=== PATIENT | female | born 1990 | race Caucasian/White ===

== ENCOUNTER 2016-12-06 16:53 | Inpatient (IN) | payer BC ==
[2016-12-06] MEDS ORDERED: Carboprost Tromethamine 250 MCG/1 ML Amp IM PRN (17:23)
[2016-12-06] MEDS ORDERED: Butorphanol 1 MG/ML SDV IVPUSH PRN (17:23)
[2016-12-06] MEDS ORDERED: Methylergonovine 0.2 MG/1 ML Amp IM PRN (17:23)
[2016-12-06] MEDS ORDERED: Misoprostol 200 MCG Tab PO PRN (17:23)
[2016-12-06] MEDS ORDERED: Lidocaine 1% 50 ML MDV INJECT PRN (17:23)
[2016-12-06] MEDS ORDERED: Sodium Chloride 0.9% 10 ML Syringe FLUSH PRN (17:23)
[2016-12-06] MEDS ORDERED: Water For Irrigation,Sterile 1,000 ML Container IRR PRN (17:23)
[2016-12-06] MEDS ORDERED: Sodium Chloride 0.9% 2.5 ML Syringe FLUSH PRN (17:23)
[2016-12-06] MEDS ORDERED: Misoprostol 25 MCG (1/4 of 100 MCG) Tab VAG SCH (18:15)
[2016-12-06] MEDS ORDERED: Oxytocin/Lactated Ringers 30 UNIT/500 ML BAG IV SCH (19:30)
--- NOTE | 2016-12-06 20:13 | PCM.PREANE ---
Preanesthetic Assessment - Anesthesia/Transfusion/Family Hx Anesthesia History: Prior Anesthesia Without Reaction Family History of Anesthesia Reaction: No Transfusion History: No Prior Transfusion(s) - Review of Systems Other: Reports: None - Physical Assessment Height: 5 ft 6 in Weight: 83.461 kg ASA Class: 2 Mental Status: Alert & Oriented x3 Airway Class: Mallampati = 2 Dentition: Reports: Normal Dentition Thyro-Mental Finger Breadths: 3 Mouth Opening Finger Breadths: 3 ROM/Head Extension: Full - Lab Values: Laboratory Last Values WBC 16.63 K/uL (4.0-11.0) H 12/06/16 17:50 RBC 4.17 M/uL (4.30-5.90) L 12/06/16 17:50 Hgb 11.1 g/dL (12.0-16.0) L 12/06/16 17:50 Hct 34.7 % (36.0-46.0) L 12/06/16 17:50 MCV 83.2 fL (80.0-98.0) 12/06/16 17:50 MCH 26.6 pg (27.0-32.0) L 12/06/16 17:50 MCHC 32.0 g/dL (31.0-37.0) 12/06/16 17:50 RDW Std Deviation 42.1 fl (28.0-62.0) 12/06/16 17:50 RDW Coeff of Gilbert 14 % (11.0-15.0) 12/06/16 17:50 Plt Count 258 K/uL (150-400) 12/06/16 17:50 MPV 9.10 fL (7.40-12.00) 12/06/16 17:50 Nucleated RBC % 0.0 /100WBC 12/06/16 17:50 Nucleated RBCs # 0 K/uL 12/06/16 17:50 Blood Type O NEGATIVE 12/06/16 17:50 Antibody Screen NEGATIVE 12/06/16 17:50 - Allergies Allergies/Adverse Reactions: Allergies Allergy/AdvReac Type Severity Reaction Status Date / Time erythromycin base Allergy Other Verified 12/06/16 17:23 - Blood Blood Available: Yes Product(s) Available: PRBC - Acknowledgements Anesthesia Type Planned: Epidural Pt an Appropriate Candidate for the Planned Anesthesia: Yes Alternatives and Risks of Anesthesia Discussed w Pt/Guardian: Yes Pt/Guardian Understands and Agrees with Anesthesia Plan: Yes PreAnesthesia Questionnaire Cardiovascular History: Reports: Other (see below) Other Cardiovascular History: Pt has childhood history of "prechordial skip" that was outgrown 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: - Infectious Disease History Infectious Disease History: Reports: Chicken pox - Past Surgical History HEENT Surgical History: Reports: Tonsillectomy Cardiovascular Surgical History: Reports: None - SUBSTANCE USE Smoking Status *Q: Never Smoker Second Hand Smoke Exposure: No Days Per Week of Alcohol Use: 2 Number of Drinks Per Day: 4 Total Drinks Per Week: 8 Date of Last Drink: 03/25/16 Time of Last Drink: 20:00 Recreational Drug Use History: No - CURRENT (IN HOUSE) MEDS Current Meds: Current Medications Butorphanol Tartrate (Stadol) 1 mg IVPUSH Q1H PRN PRN Reason: Pain Last Admin: 12/06/16 19:55 Dose: 1 mg Carboprost Tromethamine (Hemabate Ds) 250 mcg IM ASDIRECTED PRN PRN Reason: Post Hemorrhage Lactated Ringer's (Ringers, Lactated) 1,000 mls @ 150 mls/hr IV ASDIRECTED STEFFANIE Oxytocin/Lactated Ringer's (Pitocin In Lr 30 Units/500 Ml) 30 unit in 500 mls @ 2 mls/hr IV TITRATE STEFFANIE; 2 MUNITS/MIN PRN Reason: Protocol Lidocaine HCl (Xylocaine 1%) 50 ml INJECT .ONCE PRN PRN Reason: Laceration repair Methylergonovine Maleate (Methergine) 0.2 mg IM ASDIRECTED PRN PRN Reason: Post Hemorrhage Misoprostol (Cytotec) 200 mcg PO .ONCE PRN PRN Reason: Post Hemorrhage Misoprostol (Cytotec) 25 mcg VAG .ONCE STEFFANIE Last Admin: 12/06/16 18:41 Dose: 25 mcg Misoprostol (Cytotec) 25 mcg VAG Q4H PRN PRN Reason: Cervical Ripening Stop: 12/08/16 02:16 Sodium Chloride (Saline Flush) 10 ml FLUSH ASDIRECTED PRN PRN Reason: Keep Vein Open Sodium Chloride (Saline Flush) 2.5 ml FLUSH ASDIRECTED PRN PRN Reason: Keep Vein Open Sterile Water (Sterile Water For Irrigation) 1,000 ml IRR ASDIRECTED PRN PRN Reason: delivery Terbutaline Sulfate (Brethine) 0.25 mg SUBCUT ASDIRECTED PRN PRN Reason: Tacysystole Discontinued Medications Oxytocin/Lactated Ringer's (Pitocin In Lr 30 Units/500 Ml) 30 unit in 500 mls @ 999 mls/hr IV TITRATE STEFFANIE PRN Reason: 999 MUNITS/MIN Stop: 12/06/16 20:01
[2016-12-06] MEDS: Lactated Ringers 1,000 ML IV SCH ×3 (20:53→21:56)
[2016-12-06] MEDS: Terbutaline 1 MG/ML SDV SUBCUT PRN ×2 (20:58→22:09)
[2016-12-06] MEDS ORDERED: fentaNYL 100 MCG/2 ML SDV ONE (21:01)
[2016-12-06] MEDS ORDERED: Ropivacaine 0.2% 2 MG/ML 20 ML SDV ONE (21:02)
[2016-12-06] MEDS ORDERED: Ropivacaine HCl/PF 100 ML ONE (21:02)
[2016-12-06] MEDS ORDERED: Misoprostol 25 MCG (1/4 of 100 MCG) Tab VAG PRN (22:15)
[2016-12-06] MEDS ORDERED: Oxytocin/Lactated Ringers 30 UNIT/500 ML BAG ONE (22:48)
[2016-12-07] MEDS: Lactated Ringers 1,000 ML IV SCH (01:08)
[2016-12-07] MEDS ORDERED: Acetaminophen 500 MG Tab ONE (02:23)
[2016-12-07] MEDS ORDERED: Acetaminophen 500 MG Tab PO ONE (02:24)
[2016-12-07] MEDS ORDERED: oxyCODONE 5 MG Tab PO PRN (04:10)
[2016-12-07] MEDS ORDERED: Benzocaine/Menthol 20%-0.5% Spray 78 GM Cannister TOP PRN (04:10)
[2016-12-07] MEDS ORDERED: Lanolin 100% Cream 7 GM Tube TOP PRN (04:10)
[2016-12-07] MEDS ORDERED: Ibuprofen 400 MG Tab PO PRN (04:10)
[2016-12-07] MEDS ORDERED: Bisacodyl 10 MG Supp RECTAL PRN (04:10)
[2016-12-07] MEDS ORDERED: Acetaminophen 500 MG Tab PO PRN ×2 (04:10)
[2016-12-07] MEDS ORDERED: Witch Hazel Medicated Pads 40/Jar TOP PRN (04:10)
--- NOTE | 2016-12-07 06:00 | PCM48HPAN ---
Post Anesthesia Note - EVALUATION WITHIN 48HRS OF ANESTHETIC Vital Signs in Normal Range: Yes Patient Participated in Evaluation: Yes Respiratory Function Stable: Yes Airway Patent: Yes Cardiovascular Function Stable: Yes Hydration Status Stable: Yes Pain Control Satisfactory: Yes Nausea and Vomiting Control Satisfactory: Yes Mental Status Recovered: Yes
[2016-12-07] MEDS ORDERED: Oxytocin/Lactated Ringers 30 UNIT/500 ML BAG IV SCH (07:00)
--- NOTE | 2016-12-07 07:47 | OR ---
SURGEON: Evangelina Red MD DATE OF PROCEDURE: 12/07/2016 PREOPERATIVE DIAGNOSES: 1. Term at 40 weeks and 5 days gestation. 2. Induction of labor for post dates with polyhydramnios. POSTOPERATIVE DIAGNOSES: 1. Term at 40 weeks and 5 days gestation. 2. Induction of labor for post dates with polyhydramnios. 3. Delivered. PROCEDURES: 1. Spontaneous vaginal delivery. 2. Repair of second-degree perineal laceration. ANESTHESIA: Epidural. ESTIMATED BLOOD LOSS: Less than 250 mL. COMPLICATIONS: None. DISPOSITION: Mother and baby in Labor and Delivery room, [facility]. FINDINGS: Female infant, weight 3390 grams. score 7 and 9 at 1 and 5 minutes respectively. Grossly normal placenta with three-vessel cord. Midline second- degree laceration. BRIEF HISTORY: The patient is a 26-year-old primigravida, who was admitted overnight at 40 weeks and 4 days gestation for induction of labor secondary to postdates with polyhydramnios. GBS negative. She received a dose of Cytotec 25 mcg vaginal at about 1830 hours on the 06 of December and, an hour later, started bharat every 2 to 3 minutes, spontaneous rupture of membranes occurred approximately 2 hours later, with clear fluid. Thereafter, a category 2 strip was noted due to tachysystole causing recurrent variable decelerations with one episode of prolonged deceleration down to 70 beats per minute for over 3mins. I evaluated her and she was 5cm dilated, 100% effaced, at station 2 with clear amniotic fluid draining. I placed an IUPC and a scalp electrode. Started IV fluids, facial oxygen with also maternal position changes,she also received a dose of terbutaline. With these measures, the contractions spaced out and the strip reverted to a category 1 strip. She then requested and received an epidural. Shortly after the epidural, she was re- examined and found to be 8 cm dilated. Thereafter, she progressed to fully dilated at about 12 midnight. She was allowed to labor down for an hour and then commenced active pushing. With active pushing, the contractions spaced out, and she received low-dose oxytocin for augmentation. She pushed quite well bringing the baby's head down to a +4 station and was set up for delivery in modified dorsal lithotomy position. DESCRIPTION OF PROCEDURE: She had a spontaneous vaginal delivery of a live female in direct occipital anterior position, no nuchal cord, clear amniotic fluid at delivery. Anterior and posterior shoulders and the rest of the baby were delivered without difficulty. The baby was vigorous and cried spontaneously at . The baby was delivered onto the maternal abdomen. The cord was double clamped after it had ceased pulsating and was cut by the father of the baby. With the delivery of the , oxytocin infusion was converted to a titration for active management of third stage of labor. Cord blood and gas samples were obtained. Placenta was then delivered via controlled cord traction, appeared to be complete and intact. Examination of the perineum revealed a midline second- degree laceration. The laceration was repaired in 3 layers using a 2-0 Vicryl suture. Continuous nonlocking sutures were used to reapproximate the vaginal mucosa and interrupted sutures were used to repair the perineal muscle. Subcuticular stitches were used to approximate the skin. The repair was hemostatic. Uterine massage was performed. The uterus was found to be well contracted below the umbilicus. The patient tolerated the procedure well. Sponge, instrument, and needle counts were correct at the end of the delivery. ADUMVIV / KARRIL /[id number] MARGY
[2016-12-07] MEDS: Docusate Sodium 100 MG Cap PO PRN (08:41)
[2016-12-07] MEDS: Ibuprofen 800 MG Tab PO PRN (21:16)
[2016-12-08] MEDS: Docusate Sodium 100 MG Cap PO PRN (08:15)
[2016-12-08] MEDS: Ibuprofen 800 MG Tab PO PRN (08:15)
[2016-12-08 08:28] VITALS: BP 106/67
--- NOTE | 2016-12-08 08:50 | PCM.PNPP ---
- General Info Date of Service: 12/08/16 Functional Status: Reports: pain controlled, tolerating diet, ambulating, urinating - Review of Systems General: Denies: Fever, Weakness Pulmonary: Denies: shortness of breath Cardiovascular: Denies: Chest Pain, Palpitations, Lightheadedness Gastrointestinal: Denies: Abdominal pain, Nausea, Vomiting Genitourinary: Denies: flank pain Neurological: Reports: No Symptoms Psychiatric: Reports: no symptoms - General Info Date of Service: 12/08/16 - Patient Data Vital Signs - most recent: Last Vital Signs Temp 36.7 C 12/08/16 08:27 Pulse 80 12/08/16 08:27 Resp 17 12/08/16 08:27 BP 106/67 12/08/16 08:27 Pulse Ox 98 12/08/16 08:27 Weight - most recent: 83.461 kg I&O - last 24 hours: Intake & Output 12/07/16 12/08/16 12/08/16 22:59 06:59 14:59 Intake Total 2 Balance 2 Lab Results - last 24 hrs: Laboratory Results - last 24 hr 12/07/16 12/08/16 Range/Units 04:45 06:00 Hgb 10.0 L (12.0-16.0) g/dL Hct 31.7 L (36.0-46.0) % Screen NEGATIVE RhIG Candidate? YES Rhogam Indicated YES, BABY RH POS H Med Orders - Current: Current Medications Acetaminophen (Tylenol Extra Strength) 500 mg PO Q4H PRN PRN Reason: Pain Acetaminophen (Tylenol Extra Strength) 1,000 mg PO Q4H PRN PRN Reason: Pain Benzocaine/Menthol (Dermoplast Pain Relief 20%-0.5% [place]) 78 gm TOP ASDIRECTED PRN PRN Reason: Perineal Comfort Measure Last Admin: 12/07/16 08:42 Dose: 1 spray Bisacodyl (Dulcolax) 10 mg RECTAL .ONCE PRN PRN Reason: Constipation Docusate Sodium (Colace) 100 mg PO BID PRN PRN Reason: Constipation Last Admin: 12/08/16 08:15 Dose: 100 mg Emollient Ointment (Lansinoh Hpa) 0 gm TOP ASDIRECTED PRN PRN Reason: Sore Nipples Ibuprofen (Motrin) 400 mg PO Q4H PRN PRN Reason: Pain Ibuprofen (Motrin) 800 mg PO Q6H PRN PRN Reason: Pain Last Admin: 12/08/16 08:15 Dose: 800 mg Oxycodone HCl (Oxycodone) 5 mg PO Q2H PRN PRN Reason: Pain Witch Miriam (Tucks) 1 pad TOP ASDIRECTED PRN PRN Reason: comfort care Last Admin: 12/07/16 08:41 Dose: 1 pad Discontinued Medications Acetaminophen (Tylenol Extra Strength) 1,000 mg PO ONETIME ONE Stop: 12/07/16 02:25 Last Admin: 12/07/16 02:27 Dose: 1,000 mg Acetaminophen (Tylenol Extra Strength) Confirm Administered Dose 1,000 mg .ROUTE .STK-MED ONE Stop: 12/07/16 02:24 Last Admin: 12/07/16 09:22 Dose: Not Given Butorphanol Tartrate (Stadol) 1 mg IVPUSH Q1H PRN PRN Reason: Pain Last Admin: 12/06/16 19:55 Dose: 1 mg Carboprost Tromethamine (Hemabate Ds) 250 mcg IM ASDIRECTED PRN PRN Reason: Post Hemorrhage Fentanyl (Sublimaze) Confirm Administered Dose 200 mcg .ROUTE .STK-MED ONE Stop: 12/06/16 21:02 Last Admin: 12/07/16 09:21 Dose: Not Given Lactated Ringer's (Ringers, Lactated) 1,000 mls @ 150 mls/hr IV ASDIRECTED STEFFANIE Last Admin: 12/07/16 01:08 Dose: 150 mls/hr Oxytocin/Lactated Ringer's (Pitocin In Lr 30 Units/500 Ml) 30 unit in 500 mls @ 999 mls/hr IV TITRATE STEFFANIE PRN Reason: 999 MUNITS/MIN Stop: 12/06/16 20:01 Last Infusion: 12/07/16 03:35 Dose: 500 munits/min, 500 mls/hr Oxytocin/Lactated Ringer's (Pitocin In Lr 30 Units/500 Ml) 30 unit in 500 mls @ 2 mls/hr IV TITRATE STEFFANIE; 2 MUNITS/MIN PRN Reason: Protocol Ropivacaine (Naropin 0.2%) Confirm Administered Dose 100 mls @ as directed .ROUTE .STK-MED ONE Stop: 12/06/16 21:03 Last Admin: 12/07/16 09:22 Dose: Not Given Oxytocin/Lactated Ringer's (Pitocin In Lr 30 Units/500 Ml) Confirm Administered Dose 30 unit in 500 mls @ as directed .ROUTE .[facility]-MED ONE Stop: 12/06/16 22:49 Last Admin: 12/07/16 09:22 Dose: Not Given Lidocaine HCl (Xylocaine 1%) 50 ml INJECT .ONCE PRN PRN Reason: Laceration repair Methylergonovine Maleate (Methergine) 0.2 mg IM ASDIRECTED PRN PRN Reason: Post Hemorrhage Misoprostol (Cytotec) 200 mcg PO .ONCE PRN PRN Reason: Post Hemorrhage Misoprostol (Cytotec) 25 mcg VAG .ONCE STEFFANIE Last Admin: 12/06/16 18:41 Dose: 25 mcg Misoprostol (Cytotec) 25 mcg VAG Q4H PRN PRN Reason: Cervical Ripening Stop: 12/08/16 02:16 Ropivacaine (Naropin 0.2%) Confirm Administered Dose 20 ml .ROUTE .[facility]-MED ONE Stop: 12/06/16 21:03 Last Admin: 12/07/16 09:21 Dose: Not Given Sodium Chloride (Saline Flush) 10 ml FLUSH ASDIRECTED PRN PRN Reason: Keep Vein Open Sodium Chloride (Saline Flush) 2.5 ml FLUSH ASDIRECTED PRN PRN Reason: Keep Vein Open Sterile Water (Sterile Water For Irrigation) 1,000 ml IRR ASDIRECTED PRN PRN Reason: delivery Last Admin: 12/07/16 03:30 Dose: 1,000 ml Terbutaline Sulfate (Brethine) 0.25 mg SUBCUT ASDIRECTED PRN PRN Reason: Tacysystole Last Admin: 12/06/16 22:09 Dose: 0.25 mg - Interaction Disposition, : in Room with Family Infant Interaction: Holding Infant Feeding: Breastfed ; Nursed Well Support Person: , Mother - Recovery Exam Fundal Tone: Firm Fundal Level: At Umbilicus Fundal Placement: Midline Lochia Amount: Scant Lochia Color: Rubra/Red Perineum Description: Other (see below) Other Perinuem Description: 2nd degree lac with right labial bruising Episiotomy/Laceration: Approximated Bladder Status: Voiding Urinary Elimination: Voided - Exam General: alert, oriented Lungs: Normal respiratory effort Cardiovascular: Regular Rate, Regular Rhythm Abdomen: bowel sounds present, soft. No: CVA tenderness Extremities: no calf tenderness Skin: warm, dry, intact Psy/Mental Status: alert, normal affect - Problem List & Annotations (1) Vaginal delivery SNOMED Code(s): 400601561 Code(s): O80 - ENCOUNTER FOR FULL-TERM UNCOMPLICATED DELIVERY Status: Acute Current Visit: Yes - Problem List Review Problem List Initiated/Reviewed/Updated: Yes - Assessment Assessment:: PPD 1 status post /2nd MLL repaired - Plan Plan:: Patient is doing well overall, would like to go home today. Discharge instructions reviewed. Infection and bleeding warnings reviewed. [facility] up at [facility] 6 weeks. Discharge to home.
== END 2016-12-08 10:23 | disposition home or self-care (01) | DRG 560 ==
LOC: MW.OBCHECK 16:53 → MW.OB 16:54 → MW.OBCHECK 17:24 → OBSVTOIN 12-07 03:34 → MW.OB 12-07 10:45
PROVIDERS: ADMIT Obstetrics & Gynecology; ATTEND Obstetrics & Gynecology
PROC: 10E0XZZ Delivery of Products of Conception, External Approach (ICD-10-PCS; principal; 2016-12-07)
PROC: 3E0P7GC Introduction of Other Therapeutic Substance into Female Reproductive, Via Natural or Artificial Opening (ICD-10-PCS; 2016-12-07)
PROC: 00HU33Z Insertion of Infusion Device into Spinal Canal, Percutaneous Approach (ICD-10-PCS; 2016-12-07)
PROC: 3E0R3CZ (ICD-10-PCS; 2016-12-07)
PROC: 0KQM0ZZ Repair Perineum Muscle, Open Approach (ICD-10-PCS; 2016-12-07)
DX: O48.0 Post-term pregnancy (principal); O40.3XX0 Polyhydramnios, third trimester, not applicable or unspecified; O70.1 Second degree perineal laceration during delivery; Z3A.40 40 weeks gestation of pregnancy; Z37.1 Single stillbirth
CPT/HCPCS: 01967; 36415; 51703; 59025; 85014; 85018; 85027; 85460; 86850; 86900; 86901; A9270-GY; J0595; J2790; J2795; J3010; J3105; J7120

== ENCOUNTER 2020-09-29 05:00 | Inpatient (IN) | payer OTHER ==
[2020-09-29] MEDS: Lactated Ringers 1,000 ML IV SCH ×2 (05:40→11:11)
[2020-09-29] MEDS ORDERED: Sodium Chloride 0.9% 2.5 ML Syringe FLUSH PRN ×2 (06:00→12:57)
[2020-09-29] MEDS ORDERED: Misoprostol 25 MCG (1/4 of 100 MCG) Tab VAG PRN ×2 (06:00)
[2020-09-29] MEDS ORDERED: Sodium Chloride 0.9% 10 ML Syringe FLUSH PRN ×2 (06:00→12:57)
[2020-09-29] MEDS ORDERED: Lidocaine 1% 50 ML MDV INJECT PRN (06:00)
[2020-09-29] MEDS ORDERED: Terbutaline 1 MG/ML SDV SUBCUT PRN (06:00)
[2020-09-29] MEDS ORDERED: Oxytocin/0.9 % Sodium Chloride 30 UNIT/500 ML BAG IV SCH ×2 (06:00)
[2020-09-29] MEDS ORDERED: Sodium Chloride 0.9% 10 ML SDV IV PRN ×2 (06:00→12:57)
[2020-09-29] MEDS ORDERED: Butorphanol 1 MG/ML SDV IVPUSH PRN (06:00)
[2020-09-29] MEDS ORDERED: Nalbuphine 10 MG/1 ML Vial IVPUSH PRN (06:00)
[2020-09-29] MEDS ORDERED: Methylergonovine 0.2 MG/1 ML Amp IM PRN ×2 (06:00→14:41)
[2020-09-29] MEDS ORDERED: Ondansetron 4 MG/2 ML SDV IVPUSH PRN ×2 (06:00→14:41)
[2020-09-29] MEDS ORDERED: Misoprostol 200 MCG Tab PO PRN (06:00)
[2020-09-29] MEDS ORDERED: Water For Irrigation,Sterile 1,000 ML Container IRR PRN (06:00)
[2020-09-29] MEDS ORDERED: Tranexamic Acid 1,000 MG in Sodium Chloride 0.9% 100 ML IV PRN ×2 (06:00→14:41)
[2020-09-29] MEDS ORDERED: Carboprost Tromethamine 250 MCG/1 ML Amp IM PRN (06:00)
[2020-09-29] MEDS ORDERED: Citric Acid/Sodium Citrate Solution 30 ML Cup PO ONE (12:57)
[2020-09-29] MEDS ORDERED: Lactated Ringers 1,000 ML IV SCH ×2 (13:00→14:45)
[2020-09-29] MEDS ORDERED: fentaNYL 100 MCG/2 ML SDV IVPUSH PRN (13:14)
[2020-09-29] MEDS ORDERED: Acetaminophen/oxyCODONE 325-5 MG Tab PO PRN ×2 (13:14→14:41)
--- NOTE | 2020-09-29 13:14 | PCM.PREANE ---
Preanesthetic Assessment - Anesthesia/Transfusion/Family Hx Anesthesia History: Prior Anesthesia Without Reaction Family History of Anesthesia Reaction: No Transfusion History: No Prior Transfusion(s) - Review of Systems General: No Symptoms Pulmonary: No Symptoms Cardiovascular: No Symptoms Gastrointestinal: No Symptoms Neurological: No Symptoms Other: Reports: None - Physical Assessment NPO Status Date: 09/29/20 NPO Status Time: 11:30 Height: 5 ft 6 in Weight: 87.09 kg ASA Class: 2 Mental Status: Alert & Oriented x3 Airway Class: Mallampati = 2 Dentition: Reports: Normal Dentition ROM/Head Extension: Full Lungs: Clear to Auscultation, Normal Respiratory Effort Cardiovascular: Regular Rate, Regular Rhythm - Lab Values: Laboratory Last Values WBC 8.72 K/uL (4.0-11.0) 09/29/20 05:51 RBC 4.02 M/uL (4.30-5.90) L 09/29/20 05:51 Hgb 11.5 g/dL (12.0-16.0) L 09/29/20 05:51 Hct 36.1 % (36.0-46.0) 09/29/20 05:51 MCV 89.8 fL (80.0-98.0) 09/29/20 05:51 MCH 28.6 pg (27.0-32.0) 09/29/20 05:51 MCHC 31.9 g/dL (31.0-37.0) 09/29/20 05:51 RDW Std Deviation 44.0 fl (28.0-62.0) 09/29/20 05:51 RDW Coeff of Gilbert 13 % (11.0-15.0) 09/29/20 05:51 Plt Count 231 K/uL (150-400) 09/29/20 05:51 MPV 10.20 fL (7.40-12.00) 09/29/20 05:51 Nucleated RBC % 0.0 /100WBC 09/29/20 05:51 Nucleated RBCs # 0 K/uL 09/29/20 05:51 Blood Type O NEGATIVE 09/29/20 05:51 Antibody Screen NEGATIVE 09/29/20 05:51 - Allergies Allergies/Adverse Reactions: Allergies Allergy/AdvReac Type Severity Reaction Status Date / Time erythromycin base Allergy Other Verified 12/06/16 17:23 - Blood Blood Available: No - Anesthesia Plan Pre-Op Medication Ordered: None - Acknowledgements Anesthesia Type Planned: Spinal Pt an Appropriate Candidate for the Planned Anesthesia: Yes Alternatives and Risks of Anesthesia Discussed w Pt/Guardian: Yes Pt/Guardian Understands and Agrees with Anesthesia Plan: Yes Additional Comments: , 39 wk, breech, no maternal or distress, mom with full stomach PLAN: spinal with it duramorph PreAnesthesia Questionnaire - Past Health History Medical/Surgical History: Denies Medical/Surgical History Cardiovascular History: Reports: Other (See Below) Other Cardiovascular History: Pt has childhood history of "prechordial skip" that was outgrown 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 Disease History Infectious Disease History: Reports: Chicken Pox - Past Surgical History HEENT Surgical History: Reports: Tonsillectomy Cardiovascular Surgical History: Reports: None - SUBSTANCE USE Tobacco Use Status *Q: Never Tobacco User Tobacco Use Within Last Twelve Months: No Second Hand Smoke Exposure: No Recreational Drug Use History: No - CURRENT (IN HOUSE) MEDS Current Meds: Current Medications Butorphanol Tartrate (Stadol) 1 mg IVPUSH Q1H PRN PRN Reason: Pain Carboprost Tromethamine (Hemabate Ds) 250 mcg IM ASDIRECTED PRN PRN Reason: Post Hemorrhage Oxytocin/Sodium Chloride (Oxytocin 30 Unit/500 Ml-Ns) 30 unit in 500 mls @ 500 mls/hr IV TITRATE STEFFANIE Tranexamic Acid 1,000 mg/ (Sodium Chloride) 110 mls @ 660 mls/hr IV ONETIME PRN PRN Reason: Bleeding Oxytocin/Sodium Chloride (Oxytocin 30 Unit/500 Ml-Ns) 30 unit in 500 mls @ 2 mls/hr IV TITRATE STEFFANIE; Protocol Lactated Ringer's (Ringers, Lactated) 1,000 mls @ 150 mls/hr IV ASDIRECTED STEFFANIE Last Admin: 09/29/20 11:11 Dose: 150 mls/hr Documented by: Lactated Ringer's (Ringers, Lactated) 1,000 mls @ 500 mls/hr IV BOLUS STEFFANIE Lidocaine HCl (Xylocaine 1%) 50 ml INJECT ONETIME PRN PRN Reason: Laceration repair Methylergonovine Maleate (Methergine) 0.2 mg IM ASDIRECTED PRN PRN Reason: Post Hemorrhage Misoprostol (Cytotec) 200 mcg PO ONETIME PRN PRN Reason: Post Hemorrhage Misoprostol (Cytotec) 25 mcg VAG ONETIME PRN PRN Reason: Cervical Ripening Last Admin: 09/29/20 07:12 Dose: 25 mcg Documented by: Misoprostol (Cytotec) 25 mcg VAG Q4H PRN PRN Reason: Cervical Ripening Last Admin: 09/29/20 11:15 Dose: 25 mcg Documented by: Nalbuphine HCl (Nubain) 10 mg IVPUSH Q1H PRN PRN Reason: Pain (severe 7-10) Ondansetron HCl (Zofran) 4 mg IVPUSH Q6H PRN PRN Reason: Nausea/Vomiting Sodium Chloride (Saline Flush) 10 ml FLUSH ASDIRECTED PRN PRN Reason: Keep Vein Open Sodium Chloride (Saline Flush) 2.5 ml FLUSH ASDIRECTED PRN PRN Reason: Keep Vein Open Sodium Chloride (Normal Saline) 10 ml IV ASDIRECTED PRN PRN Reason: IV Use Sodium Chloride (Saline Flush) 10 ml FLUSH ASDIRECTED PRN PRN Reason: Keep Vein Open Sodium Chloride (Saline Flush) 2.5 ml FLUSH ASDIRECTED PRN PRN Reason: Keep Vein Open Sodium Chloride (Normal Saline) 10 ml IV ASDIRECTED PRN PRN Reason: IV Use Sterile Water (Sterile Water For Irrigation) 1,000 ml IRR ASDIRECTED PRN PRN Reason: delivery Terbutaline Sulfate (Brethine) 0.25 mg SUBCUT ASDIRECTED PRN PRN Reason: Tacysystole Discontinued Medications Citric Acid/Sodium Citrate (Bicitra Solution) 30 ml PO ONETIME ONE Stop: 09/29/20 12:58 Cefazolin Sodium/Dextrose (Ancef 2 Gm/50 Ml) Confirm Administered Dose 50 mls @ as directed .ROUTE .STK-MED ONE Stop: 09/29/20 13:07
[2020-09-29] MEDS ORDERED: Misoprostol 200 MCG Tab RECTAL PRN (14:41)
[2020-09-29] MEDS ORDERED: Oxytocin 10 Units/1 ML SDV IM PRN (14:41)
[2020-09-29] MEDS ORDERED: Bisacodyl 10 MG Supp RECTAL PRN (14:41)
[2020-09-29] MEDS ORDERED: diphenhydrAMINE 50 MG/ML SDV IVPUSH PRN (14:41)
[2020-09-29] MEDS ORDERED: Lanolin 100% Cream 7 GM Tube TOP PRN (14:41)
[2020-09-29] MEDS: Ketorolac 30 MG/ML SDV IVPUSH SCH ×2 (15:00→21:19)
[2020-09-29] MEDS: Nalbuphine 10 MG/1 ML Vial IVPUSH PRN ×2 (15:03→18:08)
[2020-09-29] MEDS: Docusate Sodium 100 MG Cap PO SCH (21:19)
[2020-09-30] MEDS: Ketorolac 30 MG/ML SDV IVPUSH SCH ×3 (04:35→15:04)
--- NOTE | 2020-09-30 07:54 | PCM48HPAN ---
Post Anesthesia Note - EVALUATION WITHIN 48HRS OF ANESTHETIC Vital Signs in Normal Range: Yes Patient Participated in Evaluation: Yes Respiratory Function Stable: Yes Airway Patent: Yes Cardiovascular Function Stable: Yes Hydration Status Stable: Yes Pain Control Satisfactory: Yes (Some itching.) Nausea and Vomiting Control Satisfactory: Yes Mental Status Recovered: Yes Vital Signs: Last Vital Signs Temp 36.5 C 09/30/20 04:50 Pulse 69 09/30/20 07:00 Resp 20 09/30/20 07:00 BP 90/54 L 09/30/20 04:50 Pulse Ox 97 09/30/20 07:00 - COMMENTS/OBSERVATIONS Free Text/Narrative:: Doing well. No post problems noted.
--- NOTE | 2020-09-30 07:56 | PCM.POSTAN ---
POST ANESTHESIA ASSESSMENT - MENTAL STATUS Mental Status: Alert - VITAL SIGNS Vital Signs: Last Vital Signs Temp 36.5 C 09/30/20 04:50 Pulse 69 09/30/20 07:00 Resp 20 09/30/20 07:00 BP 90/54 L 09/30/20 04:50 Pulse Ox 97 09/30/20 07:00 - RESPIRATORY Respiratory Status: Respiratory Rate WNL - CARDIOVASCULAR CV Status: Pulse Rate WNL - GASTROINTESTINAL GI Status: No Symptoms - PAIN Pain Score: 0 (Block regressing.) - POST OP HYDRATION Hydration Status: Adequate & Stable - OBSERVATIONS Free Text/Narrative:: Doing well.
--- NOTE | 2020-09-30 09:01 | PCM.PNPP ---
- General Info Date of Service: 09/30/20 Functional Status: Reports: Pain Controlled, Tolerating Diet, Ambulating, Urinating, Other (passing flatus, no BMs) - Review of Systems General: Reports: No Symptoms HEENT: Reports: No Symptoms Pulmonary: Reports: No Symptoms Cardiovascular: Reports: No Symptoms Gastrointestinal: Reports: No Symptoms Genitourinary: Reports: No Symptoms Musculoskeletal: Reports: No Symptoms Skin: Reports: No Symptoms Neurological: Reports: No Symptoms Psychiatric: Reports: No Symptoms - Patient Data Vital Signs - Most Recent: Last Vital Signs Temp 36.8 C 09/30/20 08:00 Pulse 76 09/30/20 08:00 Resp 16 09/30/20 08:00 BP 95/58 L 09/30/20 08:00 Pulse Ox 94 L 09/30/20 08:00 Weight - Most Recent: 192 lb I&O - Last 24 Hours: Intake & Output 09/29/20 09/30/20 09/30/20 22:59 06:59 14:59 Intake Total 400 Output Total 250 600 Balance -250 -200 Lab Results - Last 24 Hours: Laboratory Results - last 24 hr 09/29/20 09/29/20 09/29/20 Range/Units 05:57 13:47 15:12 WBC 8.62 (4.0-11.0) K/uL RBC 3.99 L (4.30-5.90) M/uL Hgb 11.7 L (12.0-16.0) g/dL Hct 35.5 L (36.0-46.0) % MCV 89.0 (80.0-98.0) fL MCH 29.3 (27.0-32.0) pg MCHC 33.0 (31.0-37.0) g/dL RDW Std Deviation 43.0 (28.0-62.0) fl RDW Coeff of Gilbert 13 (11.0-15.0) % Plt Count 237 (150-400) K/uL MPV 10.70 (7.40-12.00) fL Nucleated RBC % 0.0 /100WBC Nucleated RBCs # 0 K/uL Cord ABG pH 7.269 (7.18-7.38) Cord ABG Base Excess -3 (-10--2) Cord VBG pH 7.336 (7.25-7.45) Cord VBG Base Excess -3 (-10--2) Screen NEGATIVE (NEGATIVE) RhIG Candidate? YES Rhogam Indicated YES, BABY RH POS H 09/30/20 Range/Units 04:55 WBC (4.0-11.0) K/uL RBC (4.30-5.90) M/uL Hgb 9.8 L (12.0-16.0) g/dL Hct 30.4 L (36.0-46.0) % MCV (80.0-98.0) fL MCH (27.0-32.0) pg MCHC (31.0-37.0) g/dL RDW Std Deviation (28.0-62.0) fl RDW Coeff of Gilbert (11.0-15.0) % Plt Count (150-400) K/uL MPV (7.40-12.00) fL Nucleated RBC % /100WBC Nucleated RBCs # K/uL Cord ABG pH (7.18-7.38) Cord ABG Base Excess (-10--2) Cord VBG pH (7.25-7.45) Cord VBG Base Excess (-10--2) Screen (NEGATIVE) RhIG Candidate? Rhogam Indicated Med Orders - Current: Current Medications Bisacodyl (Dulcolax) 10 mg RECTAL ONETIME PRN PRN Reason: Constipation Diphenhydramine HCl (Benadryl) 25 mg IVPUSH Q6H PRN PRN Reason: Itching or Nausea Last Admin: 09/29/20 16:26 Dose: 25 mg Documented by: Docusate Sodium (Colace) 100 mg PO BID [facility] Last Admin: 09/29/20 21:19 Dose: 100 mg Documented by: Emollient Ointment (Lansinoh Hpa) 0 gm TOP ASDIRECTED PRN PRN Reason: Sore Nipples Fentanyl (Sublimaze) 50 mcg IVPUSH Q5M PRN PRN Reason: Pain (severe 7-10) Stop: 09/30/20 13:14 Lactated Ringer's (Ringers, Lactated) 1,000 mls @ 500 mls/hr IV BOLUS [facility] Last Admin: 09/29/20 13:14 Dose: 500 mls/hr Documented by: Lactated Ringer's (Ringers, Lactated) 1,000 mls @ 125 mls/hr IV ASDIRECTED [facility] Last Admin: 09/29/20 15:19 Dose: 125 mls/hr Documented by: Tranexamic Acid 1,000 mg/ (Sodium Chloride) 110 mls @ 660 mls/hr IV ONETIME PRN PRN Reason: Bleeding Ibuprofen (Motrin) 800 mg PO Q8H PRN PRN Reason: mild pain or fever Ketorolac Tromethamine (Toradol) 30 mg IVPUSH Q6H [facility] Stop: 09/30/20 14:46 Last Admin: 09/30/20 04:35 Dose: 30 mg Documented by: Methylergonovine Maleate (Methergine) 0.2 mg IM ONETIME PRN PRN Reason: Excessive Vaginal Bleeding Misoprostol (Cytotec) 1,000 mcg RECTAL ONETIME PRN PRN Reason: excessive bleeding Nalbuphine HCl (Nubain) 2.5 mg IVPUSH Q3H PRN PRN Reason: Pruritis Stop: 09/30/20 13:15 Last Admin: 09/29/20 18:08 Dose: 2.5 mg Documented by: Ondansetron HCl (Zofran) 4 mg IVPUSH Q4H PRN PRN Reason: Nausea/Vomiting Oxycodone/Acetaminophen (Percocet 325-5 Mg) 1 tab PO ONETIME PRN PRN Reason: Pain (moderate 4-6) Oxycodone/Acetaminophen (Percocet 325-5 Mg) 1 tab PO Q4H PRN PRN Reason: Pain (moderate 4-6) Oxycodone/Acetaminophen (Percocet 325-5 Mg) 2 tab PO Q4H PRN PRN Reason: Pain (moderate 4-6) Oxytocin (Pitocin) 10 unit IM ASDIRECTED PRN PRN Reason: Excessive Vaginal Bleeding Sodium Chloride (Saline Flush) 10 ml FLUSH ASDIRECTED PRN PRN Reason: Keep Vein Open Sodium Chloride (Saline Flush) 2.5 ml FLUSH ASDIRECTED PRN PRN Reason: Keep Vein Open Sodium Chloride (Normal Saline) 10 ml IV ASDIRECTED PRN PRN Reason: IV Use Sodium Chloride (Saline Flush) 10 ml FLUSH ASDIRECTED PRN PRN Reason: Keep Vein Open Sodium Chloride (Saline Flush) 2.5 ml FLUSH ASDIRECTED PRN PRN Reason: Keep Vein Open Sodium Chloride (Normal Saline) 10 ml IV ASDIRECTED PRN PRN Reason: IV Use Discontinued Medications Butorphanol Tartrate (Stadol) 1 mg IVPUSH Q1H PRN PRN Reason: Pain Carboprost Tromethamine (Hemabate Ds) 250 mcg IM ASDIRECTED PRN PRN Reason: Post Hemorrhage Citric Acid/Sodium Citrate (Bicitra Solution) 30 ml PO ONETIME ONE Stop: 09/29/20 12:58 Oxytocin/Sodium Chloride (Oxytocin 30 Unit/500 Ml-Ns) 30 unit in 500 mls @ 500 mls/hr IV TITRATE [facility] Tranexamic Acid 1,000 mg/ (Sodium Chloride) 110 mls @ 660 mls/hr IV ONETIME PRN PRN Reason: Bleeding Oxytocin/Sodium Chloride (Oxytocin 30 Unit/500 Ml-Ns) 30 unit in 500 mls @ 2 mls/hr IV TITRATE [facility]; Protocol Lactated Ringer's (Ringers, Lactated) 1,000 mls @ 150 mls/hr IV ASDIRECTED [facility] Last Admin: 09/29/20 11:11 Dose: 150 mls/hr Documented by: Cefazolin Sodium/Dextrose (Ancef 2 Gm/50 Ml) Confirm Administered Dose 50 mls @ as directed .ROUTE .STK-MED ONE Stop: 09/29/20 13:07 Acetaminophen (Ofirmev 1000 Mg/100 Ml) Confirm Administered Dose 100 mls @ as directed .ROUTE .STK-MED ONE Stop: 09/29/20 14:34 Lidocaine HCl (Xylocaine 1%) 50 ml INJECT ONETIME PRN PRN Reason: Laceration repair Methylergonovine Maleate (Methergine) 0.2 mg IM ASDIRECTED PRN PRN Reason: Post Hemorrhage Misoprostol (Cytotec) 200 mcg PO ONETIME PRN PRN Reason: Post Hemorrhage Misoprostol (Cytotec) 25 mcg VAG ONETIME PRN PRN Reason: Cervical Ripening Last Admin: 09/29/20 07:12 Dose: 25 mcg Documented by: Misoprostol (Cytotec) 25 mcg VAG Q4H PRN PRN Reason: Cervical Ripening Last Admin: 09/29/20 11:15 Dose: 25 mcg Documented by: Nalbuphine HCl (Nubain) 10 mg IVPUSH Q1H PRN PRN Reason: Pain (severe 7-10) Ondansetron HCl (Zofran) 4 mg IVPUSH Q6H PRN PRN Reason: Nausea/Vomiting Sterile Water (Sterile Water For Irrigation) 1,000 ml IRR ASDIRECTED PRN PRN Reason: delivery Terbutaline Sulfate (Brethine) 0.25 mg SUBCUT ASDIRECTED PRN PRN Reason: Tacysystole - Infant Interaction Disposition, : at Bedside Interaction: Holding Support Person: - Recovery Exam Fundal Tone: Firm Fundal Level: 1 Fingerbreadths Below Umbilicus Fundal Placement: Midline Lochia Amount: Scant Lochia Color: Rubra/Red Perineum Description: Intact, Minimal Bruising/Swelling Episiotomy/Laceration: None Bladder Status: Indwelling Catheter in Place - Exam General: Alert, Oriented, Cooperative, No Acute Distress HEENT: Pupils Equal, Pupils Reactive Neck: Supple, Trachea Midline Lungs: Normal Respiratory Effort GI/Abdominal Exam: Soft, Non-Tender, No Distention Extremities: Normal Inspection, Normal Range of Motion, Non-Tender, No Pedal Edema Skin: Warm, Dry, Intact Wound/Incisions: Dressing Dry and Intact Neurological: No New Focal Deficit Psy/Mental Status: Alert, Normal Affect, Normal Mood - Problem List Review Problem List Initiated/Reviewed/Updated: Yes - My Orders Last 24 Hours: My Active Orders 09/29/20 12:57 Patient Status [ADT] Routine Vital Signs [RC] PER UNIT ROUTINE RPR (SYPHILIS SERO) W/ RFLX [REF] Routine Sodium Chloride 0.9% [Normal Saline] 10 ml IV ASDIRECTED PRN Sodium Chloride 0.9% [Saline Flush] 10 ml FLUSH ASDIRECTED PRN Sodium Chloride 0.9% [Saline Flush] 2.5 ml FLUSH ASDIRECTED PRN Peripheral IV Insertion Adult [OM.PC] Routine Schedule Procedure [COMM] Per Unit Routine 09/29/20 13:00 Lactated Ringers [Ringers, Lactated] 1,000 ml IV BOLUS 09/29/20 14:41 Patient Status [ADT] Routine Ambulate [RC] PER UNIT ROUTINE Communication Order [RC] Per Unit Routine Intake and Output [RC] Q4H May Shower [RC] ASDIRECTED Notify Provider Vital Signs [RC] ASDIRECTED RT Incentive Spirometry [RC] Q2HWA Acetaminophen/oxyCODONE [Percocet 325-5 MG] 1 tab PO Q4H PRN Acetaminophen/oxyCODONE [Percocet 325-5 MG] 2 tab PO Q4H PRN Lanolin [Lansinoh HPA] See Dose Instructions TOP ASDIRECTED PRN Methylergonovine [Methergine] 0.2 mg IM ONETIME PRN Ondansetron [Zofran] 4 mg IVPUSH Q4H PRN Oxytocin [Pitocin] 10 unit IM ASDIRECTED PRN Tranexamic Acid [Cyklokapron] 1,000 mg Sodium Chloride 0.9% [Normal Saline] 100 ml IV ONETIME bisacodyL [Dulcolax] 10 mg RECTAL ONETIME PRN diphenhydrAMINE [Benadryl] 25 mg IVPUSH Q6H PRN miSOPROStoL [Cytotec] 1,000 mcg RECTAL ONETIME PRN Assess Lochia [WOMSER] Per Unit Routine Assess Uterine Involution [WOMSER] Per Unit Routine Breast Pump [WOMSER] Per Unit Routine Peripheral IV Discontinue [OM.PC] Routine Sequential Compression Device [OM.PC] Per Unit Routine 09/29/20 14:42 Antiembolic Devices [RC] PER UNIT ROUTINE Abdominal Binder [OM.PC] Per Unit Routine 09/29/20 14:45 Ketorolac [Toradol] 30 mg IVPUSH Q6H Lactated Ringers [Ringers, Lactated] 1,000 ml IV ASDIRECTED 09/29/20 Dinner Regular Diet [DIET] 09/29/20 21:00 Docusate Sodium [Colace] 100 mg PO BID 09/30/20 20:45 Ibuprofen [Motrin] 800 mg PO Q8H PRN - Assessment Assessment:: 30yo POD1 s/p primary due to breech presentation, stable and recovering well. - Plan Plan:: low baseline BP, with normal HR, denies symptoms ambulating and voiding, tolerating PO Hgb 9.8 today, bleeding light, denies s/s. Will start iron after discharge Reviewed postop care, plan for discharge home tomorrow
[2020-09-30] MEDS: Docusate Sodium 100 MG Cap PO SCH ×2 (09:35→20:06)
--- NOTE | 2020-09-30 16:09 | OR ---
SURGEON: Ke Crooks MD DATE OF PROCEDURE: 09/30/2020 INDICATION FOR PROCEDURE: A 30-year-old, G2, P 1-0-0-1, at 39 weeks and 5 days, admitted initially for elective induction of labor. The patient received two doses of Cytotec and progressed to 2 cm dilated with moderate contractions. Pelvic exam was performed and the presenting part was found to be at minus 4 station. Bedside scan with ultrasound found the baby to be in breech presentation. Reviewed options with the patient and recommended proceeding with primary section. The patient was agreeable and consent was signed. The patient had otherwise uncomplicated . PROCEDURE PERFORMED: Primary low transverse section. PREOPERATIVE DIAGNOSES: 1. Quezada intrauterine at 39 weeks and 5 days. 2. Breech presentation. POSTOPERATIVE DIAGNOSES: 1. Quezada intrauterine at 39 weeks and 5 days. 2. Breech presentation. ANESTHESIOLOGIST: Dr. Cristino Concepcion. ANESTHESIA: Spinal. FINDINGS: Viable male . score of 8 and 9. weight 3610g. Fetus in complete breech presentation. ESTIMATED BLOOD LOSS: 600 mL. DESCRIPTION OF PROCEDURE: The procedure was discussed with the patient. Risks and complications including bleeding; infection; DVT; injury to surrounding organs including bladder, bowel, and ureter were discussed. The patient expressed understanding. Questions answered. Consent signed. The patient was brought to the operating room. She received 2 g Ancef IV and pneumatic stockings. Spinal anesthesia was placed. Ramso catheter was placed. The abdomen was prepped with chlorhexidine in sterile fashion, then draped and tested for anesthesia, the spinal was adequate. Pfannenstiel incision was made with a scalpel and dissected down to fascia. Multiple sites of bleeding were noted and cauterized. The fascia was cleared of subcutaneous tissue. The fascia was incised in the midline and extended laterally with curved Diaz scissors. Amber clamps were placed on the superior fascial edge. The rectus muscles were from the fascia by blunt dissection and using Diaz scissors. The rectus muscle was from the inferior edge in similar fashion. Peritoneum was identified and an opening was made bluntly. A large Juan O retractor was placed in the peritoneal cavity. The bladder was noted to be away from the lower uterine segment. The uterus was incised using the scalpel at the lower uterine segment transversely. Clear amniotic fluid was noted. Fetus was noted to be in complete breech presentation. The infant's hips were grasped and turned sacrum anterior and elevated through the hysterotomy, followed by the delivery of both legs. The right shoulder was rotated anteriorly and the right arm delivered by sweeping toward the body and the left shoulder and arm were delivered in similar fashion. The head was delivered by elevating the body and flexing the chin. The nose and mouth were suctioned. The umbilical cord was clamped and cut after 60 seconds and no longer pulsating. The baby was pink, crying, and moving all extremities after delivery. The baby was handed over to nursery staff for evaluation. The cord gases were obtained. The placenta was delivered with gentle traction and with fundal massage. A clean lap was used to clear all membranes from the uterine cavity. Allis clamps were used to grasp the angles and lower edges of the incision. The uterine incision was closed with running nonlocking suture using 0 Monocryl. The uterus was firm and hemostasis was confirmed. The cavity was irrigated and again hemostasis was confirmed. The peritoneum was grasped by hemostats and brought together using 2-0 Vicryl in running fashion. The rectus muscle was brought together at the midline with two interrupted sutures using 2- 0 Vicryl. The rectus muscle was examined and found to be hemostatic. The fascia was closed using 0 Vicryl in running fashion. Subcutaneous tissue was irrigated and bleeding areas cauterized. The subcutaneous layer was brought together with 2-0 plain suture in running fashion. The skin was closed subcuticularly with 3-0 Monocryl on a Stuart needle. Telfa and ABD dressing were placed over the incision. The patient was stable, tolerated the procedure well, and was transferred to recovery room. OSIRIS MARTÍNEZ /[id number] MARGY
[2020-09-30] MEDS: Acetaminophen/oxyCODONE 325-5 MG Tab PO PRN (20:06)
[2020-09-30] MEDS ORDERED: Ibuprofen 800 MG Tab PO PRN (20:45)
[2020-10-01] MEDS: Acetaminophen/oxyCODONE 325-5 MG Tab PO PRN ×2 (00:29→09:22)
[2020-10-01 08:28] VITALS: BP 101/64; PULSE 66
[2020-10-01] MEDS: Docusate Sodium 100 MG Cap PO SCH (09:22)
--- NOTE | 2020-10-01 11:10 | PCM.PNPP ---
- General Info Date of Service: 10/01/20 Subjective Update: 30yo PPD2 , s/p for breech presentation Functional Status: Reports: Pain Controlled, Tolerating Diet, Ambulating, Urinating - Review of Systems General: Reports: No Symptoms HEENT: Reports: No Symptoms Pulmonary: Reports: No Symptoms Cardiovascular: Reports: No Symptoms Gastrointestinal: Reports: No Symptoms Genitourinary: Reports: No Symptoms Musculoskeletal: Reports: No Symptoms Skin: Reports: No Symptoms Neurological: Reports: No Symptoms Psychiatric: Reports: No Symptoms - General Info Date of Service: 10/01/20 - Patient Data Vital Signs - Most Recent: Last Vital Signs Temp 35.8 C L 10/01/20 08:00 Pulse 66 10/01/20 08:00 Resp 16 10/01/20 08:00 BP 101/64 10/01/20 08:00 Pulse Ox 95 10/01/20 08:00 Weight - Most Recent: 87.09 kg Lab Results - Last 24 Hours: Laboratory Results - last 24 hr 09/29/20 Range/Units 05:51 RPR Non-Reac (Non-Reac) Med Orders - Current: Current Medications Bisacodyl (Dulcolax) 10 mg RECTAL ONETIME PRN PRN Reason: Constipation Diphenhydramine HCl (Benadryl) 25 mg IVPUSH Q6H PRN PRN Reason: Itching or Nausea Last Admin: 09/29/20 16:26 Dose: 25 mg Documented by: Docusate Sodium (Colace) 100 mg PO BID [facility] Last Admin: 10/01/20 09:22 Dose: 100 mg Documented by: Emollient Ointment (Lansinoh Hpa) 0 gm TOP ASDIRECTED PRN PRN Reason: Sore Nipples Lactated Ringer's (Ringers, Lactated) 1,000 mls @ 500 mls/hr IV BOLUS [facility] Last Admin: 09/29/20 13:14 Dose: 500 mls/hr Documented by: Lactated Ringer's (Ringers, Lactated) 1,000 mls @ 125 mls/hr IV ASDIRECTED [facility] Last Admin: 09/29/20 15:19 Dose: 125 mls/hr Documented by: Tranexamic Acid 1,000 mg/ (Sodium Chloride) 110 mls @ 660 mls/hr IV ONETIME PRN PRN Reason: Bleeding Ibuprofen (Motrin) 800 mg PO Q8H PRN PRN Reason: mild pain or fever Last Admin: 10/01/20 07:05 Dose: 800 mg Documented by: Methylergonovine Maleate (Methergine) 0.2 mg IM ONETIME PRN PRN Reason: Excessive Vaginal Bleeding Misoprostol (Cytotec) 1,000 mcg RECTAL ONETIME PRN PRN Reason: excessive bleeding Ondansetron HCl (Zofran) 4 mg IVPUSH Q4H PRN PRN Reason: Nausea/Vomiting Oxycodone/Acetaminophen (Percocet 325-5 Mg) 1 tab PO ONETIME PRN PRN Reason: Pain (moderate 4-6) Oxycodone/Acetaminophen (Percocet 325-5 Mg) 1 tab PO Q4H PRN PRN Reason: Pain (moderate 4-6) Oxycodone/Acetaminophen (Percocet 325-5 Mg) 2 tab PO Q4H PRN PRN Reason: Pain (moderate 4-6) Last Admin: 10/01/20 09:22 Dose: 2 tab Documented by: Oxytocin (Pitocin) 10 unit IM ASDIRECTED PRN PRN Reason: Excessive Vaginal Bleeding Sodium Chloride (Saline Flush) 10 ml FLUSH ASDIRECTED PRN PRN Reason: Keep Vein Open Sodium Chloride (Saline Flush) 2.5 ml FLUSH ASDIRECTED PRN PRN Reason: Keep Vein Open Sodium Chloride (Normal Saline) 10 ml IV ASDIRECTED PRN PRN Reason: IV Use Sodium Chloride (Saline Flush) 10 ml FLUSH ASDIRECTED PRN PRN Reason: Keep Vein Open Sodium Chloride (Saline Flush) 2.5 ml FLUSH ASDIRECTED PRN PRN Reason: Keep Vein Open Sodium Chloride (Normal Saline) 10 ml IV ASDIRECTED PRN PRN Reason: IV Use Discontinued Medications Butorphanol Tartrate (Stadol) 1 mg IVPUSH Q1H PRN PRN Reason: Pain Carboprost Tromethamine (Hemabate Ds) 250 mcg IM ASDIRECTED PRN PRN Reason: Post Hemorrhage Citric Acid/Sodium Citrate (Bicitra Solution) 30 ml PO ONETIME ONE Stop: 09/29/20 12:58 Fentanyl (Sublimaze) 50 mcg IVPUSH Q5M PRN PRN Reason: Pain (severe 7-10) Stop: 09/30/20 13:14 Oxytocin/Sodium Chloride (Oxytocin 30 Unit/500 Ml-Ns) 30 unit in 500 mls @ 500 mls/hr IV TITRATE [facility] Tranexamic Acid 1,000 mg/ (Sodium Chloride) 110 mls @ 660 mls/hr IV ONETIME PRN PRN Reason: Bleeding Oxytocin/Sodium Chloride (Oxytocin 30 Unit/500 Ml-Ns) 30 unit in 500 mls @ 2 mls/hr IV TITRATE [facility]; Protocol Lactated Ringer's (Ringers, Lactated) 1,000 mls @ 150 mls/hr IV ASDIRECTED [facility] Last Admin: 09/29/20 11:11 Dose: 150 mls/hr Documented by: Cefazolin Sodium/Dextrose (Ancef 2 Gm/50 Ml) Confirm Administered Dose 50 mls @ as directed .ROUTE .STK-MED ONE Stop: 09/29/20 13:07 Acetaminophen (Ofirmev 1000 Mg/100 Ml) Confirm Administered Dose 100 mls @ as directed .ROUTE .STK-MED ONE Stop: 09/29/20 14:34 Ketorolac Tromethamine (Toradol) 30 mg IVPUSH Q6H [facility] Stop: 09/30/20 14:46 Last Admin: 09/30/20 15:04 Dose: 30 mg Documented by: Lidocaine HCl (Xylocaine 1%) 50 ml INJECT ONETIME PRN PRN Reason: Laceration repair Methylergonovine Maleate (Methergine) 0.2 mg IM ASDIRECTED PRN PRN Reason: Post Hemorrhage Misoprostol (Cytotec) 200 mcg PO ONETIME PRN PRN Reason: Post Hemorrhage Misoprostol (Cytotec) 25 mcg VAG ONETIME PRN PRN Reason: Cervical Ripening Last Admin: 09/29/20 07:12 Dose: 25 mcg Documented by: Misoprostol (Cytotec) 25 mcg VAG Q4H PRN PRN Reason: Cervical Ripening Last Admin: 09/29/20 11:15 Dose: 25 mcg Documented by: Nalbuphine HCl (Nubain) 10 mg IVPUSH Q1H PRN PRN Reason: Pain (severe 7-10) Nalbuphine HCl (Nubain) 2.5 mg IVPUSH Q3H PRN PRN Reason: Pruritis Stop: 09/30/20 13:15 Last Admin: 09/29/20 18:08 Dose: 2.5 mg Documented by: Ondansetron HCl (Zofran) 4 mg IVPUSH Q6H PRN PRN Reason: Nausea/Vomiting Sterile Water (Sterile Water For Irrigation) 1,000 ml IRR ASDIRECTED PRN PRN Reason: delivery Terbutaline Sulfate (Brethine) 0.25 mg SUBCUT ASDIRECTED PRN PRN Reason: Tacysystole - Interaction Disposition, : at Bedside Infant Interaction: Holding Support Person: - Recovery Exam Fundal Tone: Firm Fundal Level: 1 Fingerbreadths Below Umbilicus Fundal Placement: Midline Lochia Amount: Scant Lochia Color: Rubra/Red Perineum Description: Intact, Minimal Bruising/Swelling Episiotomy/Laceration: None Bladder Status: Voiding Urinary Elimination: Voided - Exam General: Alert HEENT: Pupils Equal Neck: Supple Lungs: Clear to Auscultation, Normal Respiratory Effort Cardiovascular: Regular Rate, Regular Rhythm Extremities: Normal Inspection Wound/Incisions: Dressing Dry and Intact Neurological: No New Focal Deficit Psy/Mental Status: Alert - Problem List & Annotations (1) delivery delivered SNOMED Code(s): 424293353 Code(s): O82 - ENCOUNTER FOR DELIVERY WITHOUT INDICATION Status: Acute Current Visit: Yes - Problem List Review Problem List Initiated/Reviewed/Updated: Yes - Assessment Assessment:: 30yo POD2 s/p primary due to breech presentation, stable and recovering well. - Plan Plan:: Routine care Discharge home today
== END 2020-10-01 12:03 | disposition home or self-care (01) | DRG 807 ==
LOC: MW.OBCHECK 05:00 → MW.OB 05:01 → MW.OBCHECK 13:44 → MW.OB 13:45 → MW.OBCHECK 13:46 → MW.OB 13:46 → OBSVTOIN 14:41 → MW.OB 17:51
PROVIDERS: ADMIT Pediatrics Pediatric Hematology-Oncology; ATTEND Obstetrics & Gynecology
PROC: 10E0XZZ Delivery of Products of Conception, External Approach (ICD-10-PCS; principal; 2020-09-29)
PROC: 3E0P7VZ Introduction of Hormone into Female Reproductive, Via Natural or Artificial Opening (ICD-10-PCS; 2020-09-29)
DX: O32.1XX0 Maternal care for breech presentation, not applicable or unspecified (principal); Z37.0 Single live birth; Z3A.39 39 weeks gestation of pregnancy
CPT/HCPCS: 01961; 36415; 36430; 59025; 82803; 85014; 85018; 85027; 85460; 86592; 86850; 86900; 86901; A9270-GY; J0131; J0690; J1200; J1885; J2300; J2792; J7120